=== PATIENT | male | born 1965 | race Caucasian/White ===

== ENCOUNTER 2019-04-14 10:44 | Day surgery (SDC) | payer BC, OTHER ==
[~2019-04-14] VITALS: Ht 185.4 cm; Wt 90.3 kg
--- NOTE | ~2019-04-14 | O ---
[facility] [place] [address] OPERATIVE REPORT Name: ABHILASH BANDA Room #: 150-4 [facility].#: [id number] Admission: 04/14/19 Attend Phys: Abhay Casper MD Discharge: Date of : 61 Report #: [id number] THIS REPORT FOR: cc: RYAN ALMAGUER Physician not on staff Abhay Casper MD ~ CC: Abhay Casper Physician staff RYAN ALMAGUER DATE OF SERVICE: 04/14/2019 PREOPERATIVE DIAGNOSES: 1. Left foot flatfoot deformity. 2. Left foot hindfoot osteoarthritis. POSTOPERATIVE DIAGNOSES: 1. Left foot flatfoot deformity. 2. Left foot hindfoot osteoarthritis. PROCEDURE: Left foot triple arthrodesis. SURGEON: Dr. Abhay Casper. FURNITURE REPAIRER: Carmella Perry. ANESTHESIA: General. ESTIMATED BLOOD LOSS: Minimal. DRAINS: No drains. TOURNIQUET TIME: One hour. DESCRIPTION OF PROCEDURE: The patient was brought to the operating room where he was placed under general anesthesia. Once under adequate general anesthesia, his left lower extremity was prepped and draped in sterile manner. The extremity was elevated, exsanguinated, tourniquet placed at 300 mmHg. A lateral incision over the sinus tarsi was made extending down to near the fourth metatarsal base. Dissection was carried down through the soft tissue to the extensor digitorum brevis, which was then elevated along with the fat pad off of the subtalar joint and the calcaneocuboid joint. Once exposure was made, the subtalar and calcaneocuboid joints were each prepared utilizing osteotomes, curettes and a jesus alberto to good bleeding subchondral bone. We then proceeded dorsally and a dorsal incision of 4 cm in length was made overlying the talonavicular joint. Dissection was carried down to the talonavicular joint, [address] [address] OPERATIVE REPORT Name: ABHILASH BANDA Room #: 150-4 [facility].#: [id number] Admission: 04/14/19 Attend Phys: Abhay Casper MD Discharge: Date of : 61 Report #: [id number] which was subsequently identified and prepared in a similar fashion as the opposite side, i.e., utilizing osteotomes, curettes and a jesus alberto to remove any subchondral bone to get to good bleeding subchondral bone. The joint surfaces of each joint of talonavicular, calcaneocuboid and subtalar joints were then fenestrated with K wires to enhance blood flow and the wound was then irrigated copiously. Demineralized bone matrix allograft was placed into each of the joints. Subsequent fixation across each of the joints was achieved utilizing fluoroscopy for guidance. Two 7.3 mm cannulated screws were placed across the subtalar joint. Three screws each at the talonavicular and calcaneocuboid joints. Excellent fixation and alignment was achieved as verified under fluoroscopy. The wounds were irrigated copiously and closed with 2-0 Vicryl in the deep and subcutaneous tissues and sherie were used for the skin. The wounds were dressed with Xeroform, 4 x 4s and sterile soft compressive dressing was placed. Tourniquet was let down at approximately 1 hour. Toes were pink and warm with good capillary refill. There were no complications from the procedure. The patient tolerated the procedure well and went to the recovery room without incident. By: [id number] Abhay Casper MD /nt
[~2019-04-14 10:44] MED LIST: ALEVE220 M1 PO; FOLIC ACID1 MG PO; MAGNESIUM250 M1 PO; METHOTREXATE 22.5 M1 PO; POTASSIUM99 M1 PO; RINVOQ ER15 MG PO; TYLENOL EXTRA500 MG PO; VITAMIN B COMP1 EACH PO; VITAMIN C1000 MG PO; VITAMIN E400 UNI2 PO
[2019-04-14 14:23] VITALS: BP 112/77
[2019-04-14] MEDS ORDERED: PERCOCET 7.5-31 EAC1 PO (14:29)
[2019-04-14] MEDS ORDERED: ASPIRIN EC325 M1 PO (14:30)
[2019-04-14 14:46] VITALS: BP 112/77
== END 2019-04-14 16:00 | disposition home or self-care (01) ==
LOC: OR 10:44 → TBA 10:45 → OR 12:04
DX: M21.42 Flat foot [pes planus] (acquired), left foot (principal); M19.072 Primary osteoarthritis, left ankle and foot; F17.210 Nicotine dependence, cigarettes, uncomplicated; Z98.890 Other specified postprocedural states; Z79.899 Other long term (current) drug therapy; Z79.82 Long term (current) use of aspirin
CPT/HCPCS: 50010; 50101; 50386; 50679; 51014; 51335; 51412; 53341; 53400; 56524; 57091; 57180; 62110; 62900; 70005